=== PATIENT | female | born 1975 | race Asian ===

== ENCOUNTER 2018-02-09 11:21 | Emergency (ER) | payer BC ==
[~2018-02-09] VITALS: Ht 152.4 cm; Wt 44.9 kg
[2018-02-09 12:09] VITALS: BP 107/64
--- NOTE | 2018-02-09 12:09 | NUR ---
PT BIB C/O SHORTNESS OF BREATH X 1 WEEK, GETTING WORSE 2 DAYS. BODY ACHES. 10 HX---RASH FACE FOREHEAD CHEST X 6 MONTHS RX---ATARAX. DENIES N/V/D; SKIN IS PINK/WARM/DRY; AAOX4 WITH EVEN AND STEADY GAIT; HR EVEN AND REGULAR; PT DENIES ANY FEVER, CP, AT THIS TIME; PATIENT STATES PAIN OF 7/10 AT THIS TIME; VSS; PATIENT POSITIONED FOR COMFORT; HOB ELEVATED; BEDRAILS UP X2; BED DOWN. ER MD MADE AWARE OF PT STATUS.
--- NOTE | 2018-02-09 12:54 | NUR ---
XRAY AT BEDSIDE
[2018-02-09] MEDS ORDERED: ALBUTEROL SULFATE/IPRATROPIU 3 ML SOL IH ONE (13:00)
[2018-02-09 14:04] VITALS: BP 110/67
--- NOTE | 2018-02-09 14:06 | NUR ---
Patient discharged with v/s stable. Written and verbal after care instructions given and explained. Patient alert, oriented and verbalized understanding of instructions. Ambulatory with steady gait. All questions addressed prior to discharge. ID band removed. Patient advised to follow up with PMD. Rx of PROAIR HFA given. Patient educated on indication of medication including possible reaction and side effects. Opportunity to ask questions provided and answered.
== END 2018-02-09 14:06 | disposition home or self-care (01) ==
LOC: MED 11:21
DX: R05 Cough (principal); R21 Rash and other nonspecific skin eruption; J45.909 Unspecified asthma, uncomplicated; Z88.0 Allergy status to penicillin
CPT/HCPCS: 71045; 81002; 81025; 94640; 99283; J7620